=== PATIENT | female | born 1980 | race Caucasian/White ===

== ENCOUNTER 2019-02-03 12:45 | Inpatient (IN) | payer OTHER ==
[~2019-02-03] VITALS: Ht 157.5 cm; Wt 3.2 kg
[~2019-02-03 12:45] MED LIST: PRENATAL TABLE1 EAC3 PO; ZANTAC150 M3 PO
[2019-02-03] MEDS ORDERED: ZANTAC150 M3 PO (14:22)
[2019-02-03] MEDS ORDERED: FIORICET PO (14:22)
[2019-02-09] MEDS ORDERED: BUTALBIT-ACETA1 EACH PO (07:38)
== END 2019-02-12 13:01 | disposition home or self-care (01) | DRG 785 ==
LOC: OB/GYN 12:45 → EDSTATUS 12:45 → ADM 12:45 → O/R 02-09 06:07 → OB/GYN 02-09 08:30
PROVIDERS: ADMIT Obstetrics & Gynecology
PROC: 0UL70ZZ Occlusion of Bilateral Fallopian Tubes, Open Approach (ICD-10-PCS; 2019-02-09)
PROC: 4A1HXCZ Monitoring of Products of Conception, Cardiac Rate, External Approach (ICD-10-PCS; 2019-02-09)
PROC: 10D00Z1 Extraction of Products of Conception, Low, Open Approach (ICD-10-PCS; principal; 2019-02-09 08:30)
DX: O82 Encounter for cesarean delivery without indication (principal); Z3A.39 39 weeks gestation of pregnancy; Z37.0 Single live birth; Z30.2 Encounter for sterilization; Z22.330 Carrier of Group B streptococcus